=== PATIENT | female | born 1995 | race Caucasian/White ===

== ENCOUNTER 2017-12-28 17:18 | Emergency (ER) | payer BC, SELFPAY ==
[2017-12-28 17:19] VITALS: BP 157/92; PULSE 88; RESP 16; TEMP 36.9; O2SAT 98; BMI 27.2
--- NOTE | 2017-12-28 17:51 | CT_ITS ---
STUDY: CT ABDOMEN AND PELVIS WITHOUT CONTRAST REASON FOR EXAM: Female, 22 years old. Abdominal pain RADIATION DOSAGE (If Supplied By Facility): CTDIvol = ( 6.54 ) mGy, DLP = ( 294.26 ) mGycm TECHNIQUE: Transaxial images were obtained from the dome of the diaphragm to the symphysis pubis without oral contrast, and without intravenous contrast. Sagittal and coronal images were reconstructed. Individualized dose optimization techniques were used for this CT. COMPARISON: None. FINDINGS: Evaluation of the abdominal viscera is limited in the absence of intravenous contrast. The visualized lung bases are clear. The visualized portions of the heart and pericardium are within normal limits. There are no calcified gallstones present. The liver demonstrates an unremarkable unenhanced appearance. The spleen is normal in size. The pancreas demonstrates an unremarkable unenhanced appearance. The adrenal glands are within normal limits. There are no obstructing renal stones. There is no hydronephrosis. Normal visualized stomach. There is no bowel obstruction or inflammation. There are surgical clips in the region of the appendix consistent with a prior appendectomy. The aorta is normal in caliber. There is no abdominal or pelvic free air, free fluid, fluid collection or lymphadenopathy. There are no destructive osseous lesions. CT/Abdomen/Pelvis without Cont IMPRESSION: No acute abdominal or pelvic pathology demonstrated on this noncontrast CT. Electronically Signed: Kwasi Montanez, at 19:07 EDT Tel , Service support ,
[2017-12-28] MEDS: Ondansetron 4 MG/2 ML Vial IV (18:04)
[2017-12-28] MEDS: 0.9% Normal Saline 1,000 ML 1000 ML IV (18:04)
[2017-12-28 18:18] LABS: Absolute Lymphocyte Count 0.75 X10^3/ul (0.83-4.51); Absolute Neutrophil Count 11.2 X10^3/uL (2.0-7.7); Basophil# 0.02 X10^3/uL; Basophil% 0.2 % (0-1); Eosinophil# 0.05 X10^3/uL; Eosinophils% 0.4 % (0-5); Hemoglobin 15.3 g/dl (12.0-15.0); Lymphocyte # 0.75 X10^3/ul (4.0); Mean Corp Hgb Conc 34.8 g/gl (32-36); Mean Corpuscular Hgb 32.1 pg (27.0-32.0); Mean Corpuscular Volume 92.2 fL (81-99); Monocyte# 0.49 X10^3/uL; Monocyte% 3.9 % (0-10); Neutrophil # 11.23 X10^3/uL (2.7-7.7); Neutrophil % 89.2 % (47-70); Platelet Count 254 K/mm3 (150-450); RBC Distribution Width CV 12.7 % (11.6-14.6); RBC Distribution Width SD 42.3 fl (35.1-43.9); Red Blood Count 4.77 M/mm3 (4.2-5.4); White Blood Count 12.6 K/mm3 (4.4-11.0)
[2017-12-28 18:19] LABS: POSITIVE COUNT NO; POSITIVE DIFFERENTIAL NO; POSITIVE MORPHOLOGY NO
[2017-12-28 18:29] LABS: AST(SGOT) 15 U/L (15-37); Alanine Aminotransfer ALT/SGPT 23 U/L (13-56); Albumin, Serum 4.2 g/dL (3.2-5.0); Alkaline Phosphatase 96 U/L (45-117); Anion Gap 10 (5-15); BUN 15 mg/dL (7-18); BUN/Creat Ratio 21.7 RATIO (10-20); Calcium,Total 8.4 mg/dL (8.5-10.1); Chloride 107 mmol/L (98-107); Creatinine, Serum 0.69 mg/dL (0.55-1.02); EST Glomerular Filtration Rate 111 mL/min (>60); Est Glom Filt Rate - Afr Amer 135 mL/min (>60); Estimated Creatinine Clearance 100.29 ml/min; Glucose 82 mg/dL (74-106); Lipase 97 U/L (73-393); Potassium 3.8 mmol/L (3.5-5.1); Protein, Total 8.2 g/dL (6.4-8.2); Sodium Level 141 mmol/L (136-145)
[2017-12-28 18:31] LABS: Pregnancy, Serum, hCG Quali. NEGATIVE Negative (0-9 Nonpreg)
--- NOTE | 2017-12-28 18:44 | ED.VISSUMM ---
- ER Visit Summary Date of Service: 12/28/17 Chief Complaint: [Abdominal pain] History of Present Illness: The patient is a 22 F [presents the emergency department with abdominal pain that she has had for years off-and-on. Patient states as a child she was diagnosed with irritable bowel syndrome. Patient states she started with vomiting and diarrhea today. Patient's thrown up about 3 times and has had one watery stool. Patient denies any fever. Patient denies urinary symptoms. Patient states abdominal pain has worsened and become more continuous over the last several days. Patient states that she had recent history of elevated lipase.] Physical Examination: [HEENT-PERRLA, EOMI. Cranial nerves II through XII grossly intact. TMs clear. Mucous membranes moist. No adenopathy. Cardiovascular-regular rate and rhythm without murmur or ectopy Lungs-clear to auscultation, chest wall stable without crepitus or subcu emphysema Abdomen-normoactive bowel sounds, soft ,patient has diffuse tenderness on palpation. There is no rebound, rigidity, or perineal signs Extremities-intact ?4, normal range of motion, normal pulses, atraumatic] Test Results: [CBC with differential showed a white count of 12.6, hemoglobin 15, hemoglobin 44, platelets 254. Chemistries unremarkable. LFTs were normal. Lipase was 97. Serum hCG was negative.] Analysis was normal and a CT scan of the abdomen pelvis was unremarkable. Emergency Department Course and Treatment: [Patient received a liter normal same fluid bolus as well as Zofran.] Treatment Plan: [Patient will be given a prescription for Zofran and she has Bentyl at home. Patient advised to push fluids. The etiology of her chronic abdominal pain is unclear and I will refer her to political consultant. I suspect patient likely has a viral gastroenteritis at this time.] Disposition: [Discharged to home in stable condition. Patient advised to return if persistent vomiting, diarrhea, fever, worsening abdominal pain, or condition should worsen in any way.] Impression: [Abdominal pain Viral gastroenteritis] This note was generated with [employer] dictation software. It may contain incorrect words, spelling, and punctuation that were not noted in review of the chart prior to signing ED Disposition - Plan for ED Patient: Chief Complaint: Abd Pain Referrals: Care Physician,No Primary [Primary Care Provider] -
--- NOTE | 2017-12-28 18:47 | ED.DCSUM_ITS ---
- ER Visit Summary Date of Service: 12/28/17 Chief Complaint: [Abdominal pain] History of Present Illness: The patient is a 22 F [presents the emergency department with abdominal pain that she has had for years off-and-on. Patient states as a child she was diagnosed with irritable bowel syndrome. Patient states she started with vomiting and diarrhea today. Patient's thrown up about 3 times and has had one watery stool. Patient denies any fever. Patient denies urinary symptoms. Patient states abdominal pain has worsened and become more continuous over the last several days. Patient states that she had recent history of elevated lipase.] Physical Examination: [HEENT-PERRLA, EOMI. Cranial nerves II through XII grossly intact. TMs clear. Mucous membranes moist. No adenopathy. Cardiovascular-regular rate and rhythm without murmur or ectopy Lungs-clear to auscultation, chest wall stable without crepitus or subcu emphysema Abdomen-normoactive bowel sounds, soft ,patient has diffuse tenderness on palpation. There is no rebound, rigidity, or perineal signs Extremities-intact ?4, normal range of motion, normal pulses, atraumatic] Test Results: [CBC with differential showed a white count of 12.6, hemoglobin 15 , hemoglobin 44, platelets 254. Chemistries unremarkable. LFTs were normal. Lipase was 97. Serum hCG was negative.] Analysis was normal and a CT scan of the abdomen pelvis was unremarkable. Emergency Department Course and Treatment: [Patient received a liter normal same fluid bolus as well as Zofran.] Treatment Plan: [Patient will be given a prescription for Zofran and she has Bentyl at home. Patient advised to push fluids. The etiology of her chronic abdominal pain is unclear and I will refer her to automation developer. I suspect patient likely has a viral gastroenteritis at this time.] Disposition: [Discharged to home in stable condition. Patient advised to return if persistent vomiting, diarrhea, fever, worsening abdominal pain, or condition should worsen in any way.] Impression: [Abdominal pain Viral gastroenteritis] This note was generated with [employer] dictation software. It may contain incorrect words, spelling, and punctuation that were not noted in review of the chart prior to signing ED Disposition - Plan for ED Patient: Chief Complaint: Abd Pain Referrals: Care Physician,No Primary [Primary Care Provider] -
[2017-12-28 19:21] LABS: Bacteria 0 SEEN /hpf (None Seen); Mucous, Urine 0 SEEN /hpf (<or=2+); Red Blood Cells-Urine 0 SEEN /hpf (0-5)
--- NOTE | 2017-12-28 19:25 | ED.RN ---
DR. MIRANDA AWARE OF URINE KETONES 150
[2017-12-28 19:30] LABS: Color, Urine Yellow (Yellow); Glucose, Dipstick NEGATIVE (Normal); Urine Bilirubin Dipstick Negative (Negative); Urine Clarity Clear (Clear)
[2017-12-28 19:31] LABS: Ketone-Dipstick 150 mg/dl (Negative); Leukocyte Esterase-Dipstick Negative /ul (Negative); Nitrite-Dipstick Negative (Negative); Occult Blood-Urine 10 /ul (Negative); Protein-Dipstick 15 mg/dl (Negative); Specific Gravity, Urine 1.015 (1.002-1.030); Urine Urobilinogen Normal (Normal)
[2017-12-28 19:32] LABS: Squamous Epithelial Cells - UA 0-5 SEEN /hpf (5-10)
[2017-12-28 19:33] LABS: White Blood Cells 0-5 SEEN /hpf (0-5)
--- NOTE | 2017-12-28 19:38 | ED.DEP ---
ED Disposition - Plan for ED Patient: Chief Complaint: Abd Pain Instructions: ED Abdominal Pain Unkn Cause, ED Gastroenteritis Viral Prescriptions: Ondansetron [Zofran Odt] 4 mg PO Q8H PRN PRN #10 tab PRN Reason: Nausea Referrals: Care Physician,No Primary [Primary Care Provider] - Dennis Valenzuela MD [STAFF PHYSICIAN] - 5-7 Days
[2017-12-28 19:43] VITALS: BP 130/80; PULSE 88; RESP 18; O2SAT 97
== END 2017-12-28 19:44 | disposition home or self-care (01) ==
PROVIDERS: Emergency Provider Emergency Medicine
DX: R10.9 Unspecified abdominal pain (principal); A08.4 Viral intestinal infection, unspecified; Z72.0 Tobacco use
CPT/HCPCS: 74176; 80053; 81001; 83690; 84703; 85025; 96361; 96374; 99283; J7030; A4216; J2405

== ENCOUNTER → 2018-11-30 07:56 | Outpatient (CLI) | payer OTHER, SELFPAY ==
[2018-11-15 09:51] VITALS: BMI 25.6
--- NOTE | 2018-11-30 07:57 | US_ITS ---
STUDY: ABDOMINAL ULTRASOUND - RIGHT UPPER QUADRANT REASON FOR VISIT: Female, 23 years old. Abdominal pain. TECHNIQUE: Ultrasound evaluation of the right upper quadrant was performed with real-time and static medeiros-scale imaging. TECHNICAL QUALITY: Adequate. COMPARISON: CT of the abdomen and pelvis, December 28, 2017. FINDINGS: Liver: The liver measures 14.2 cm. There is normal echogenicity of the liver. The bile ducts are within normal limits. There is hepatic color flow. The direction of portal flow is hepatopetal. There is no demonstrated mass lesion. Gallbladder: Normal distended gallbladder. The gallbladder wall measures 3 mm. There is a negative sonographic Lewis's sign. There is no pericholecystic fluid. There are no gallstones. Common Bile Duct (C.B.D.): The common bile duct measures 3 mm. Pancreas: Normal size of the head, body and tail of the pancreas. There is normal echogenicity of the pancreas. There is no demonstrated pancreatic mass or cyst. Right Kidney: Normal size of the right kidney. The right kidney measures 10.0 cm. Normal renal cortex. The right cortex measures 1.4 cm. There is no demonstrated renal mass or cyst. There is no right hydronephrosis. US/Gallbladder IMPRESSION: Normal right upper quadrant ultrasound examination. Electronically Signed: Edmund Valentin DO at 19:00 EST Tel [phone], Service support ,
== END ==
PROVIDERS: Referring Provider Surgery; Visit Provider Surgery
DX: R10.13 Epigastric pain (principal)
CPT/HCPCS: 76705

== ENCOUNTER 2018-12-08 09:41 | Day surgery (SDC) | payer OTHER, SELFPAY ==
[2018-11-15 09:51] VITALS: BMI 25.6
[2018-12-08] VITALS (7 sets, daily range): BP systolic 93–124; BP diastolic 46–70; PULSE 51–64; RESP 16; TEMP 36.3–37.3; O2SAT 99–100; BMI 25.3
[2018-12-08 10:24] LABS: Internal QC Validated? YES +Cl - CLEAR BKGD; Pregnancy, Urine Negative Negative
--- NOTE | 2018-12-08 11:13 | OP.ENDO_ITS ---
12/08/2018 Hilda Lemus Re : Colonoscopy procedure for Amanda Beltran Dear Allan This procedure was performed on Saturday, December 08, 2018. My impressions and recommendations are as follows: Impressions : - The entire examined colon is normal on direct and retroflexion views. - No specimens collected. Recommendations : - Discharge patient to home. - Resume previous diet. - Continue present medications. - Refer to a purchase price analyst at appointment to be scheduled. - Repeat colonoscopy at age 49 for screening purposes. My findings are described in the full procedure note, which is enclosed. If I can be of further assistance, please feel free to contact me at Doctor phone number(s): , Work: . Sincerely, Alirio Valdez MD 12/08/2018 11:13:06 AM This report has been signed electronically.
== END 2018-12-08 12:14 | disposition home or self-care (01) ==
LOC: EN 09:42 → AC 09:44
PROVIDERS: Anesthesiology; Referring Provider Surgery; Visit Provider Surgery
PROC: 0DJD8ZZ Inspection of Lower Intestinal Tract, Via Natural or Artificial Opening Endoscopic (ICD-10-PCS; CPT 45378; principal; 2018-12-08 10:55)
DX: K62.5 Hemorrhage of anus and rectum (principal); R19.5 Other fecal abnormalities; K59.00 Constipation, unspecified; F17.210 Nicotine dependence, cigarettes, uncomplicated
CPT/HCPCS: 45378; 81025; J7120